=== PATIENT | female | born 1960 | race American Indian/Alaskan Native ===

== ENCOUNTER 2020-11-02 14:44 | Outpatient (CLI) | payer OTHER ==
[2020-11-02 15:16] LABS: Basophils % (Auto) 0.9 % (0.0-1.8); Eosinophils # (Auto) 0.3 K/mm3 (0.0-0.4); Eosinophils % (Auto) 5.9 % (0.0-4.3); Hemoglobin 12.9 gm/dl (10.1-14.3); Lymphocytes # (Auto) 1.6 K/mm3 (1.2-5.4); Lymphocytes % (Auto) 36.6 % (13.4-35.0); Mean Corpuscular HGB Conc 33 % (30-34); Mean Corpuscular Volume 87 fl (79-97); Monocytes # (Auto) 0.3 K/mm3 (0.0-0.8); Monocytes % (Auto) 7.5 % (0.0-7.3); Platelet Count 333 K/mm3 (140-440); Red Blood Count 4.51 M/mm3 (3.65-5.03); Red Cell Distribution Width 14.6 % (13.2-15.2)
[2020-11-02 16:18] LABS: Alanine Aminotransferase 13 units/L (7-56); Albumin 4.3 g/dL (3.9-5); BUN/Creatinine Ratio 14; Blood Urea Nitrogen 15 mg/dL (7-17); Calcium 9.9 mg/dL (8.4-10.2); Chol/HDL Ratio 3.17 %; HDL Cholesterol 58 mg/dL (40-59); Hemolysis Index 4; LDL Cholesterol,Direct 123 mg/dL (50-130)
--- NOTE | 2020-11-02 17:05 | Cat Scan Report ---
CT CHEST WITHOUT CONTRAST INDICATION / CLINICAL INFORMATION: ABNORMAL FINDING OF LUNG. TECHNIQUE: Axial CT images were obtained through the chest without contrast. All CT scans at this location are p erformed using CT dose reduction for ALARA by means of automated exposure control. COMPARISON: None available. FINDINGS: THORACIC AORTA: Mild ectasia of the thoracic aorta without aneurysm. Mild aortic atherosclerotic calc ifications. No acute abnormality. HEART: Mild cardiac enlargement. No pericardial effusion. MEDIASTINUM / MARITZA: No significant thoracic lymphadenopathy. LUNGS/PLEURA: Diffuse multifocal airspace consolidation seen throughout the lungs. No pleural effusio n or pneumothorax. ADDITIONAL CHEST FINDINGS: None. UPPER ABDOMEN: No significant abnormality. SKELETAL SYSTEM: IMPRESSION: Diffuse pulmonary airspace disease, most consistent with multifocal pneumonia. Signer Name: Deyvi Saavedra MD Signed: 11/02/2020 5:01 PM Workstation Name: [id number]
== END 2020-11-02 14:45 | disposition home or self-care (01) ==
LOC: CT 14:44
PROVIDERS: ATTEND Internal Medicine
DX: I77.810 Thoracic aortic ectasia (principal); R91.8 Other nonspecific abnormal finding of lung field; E78.00 Pure hypercholesterolemia, unspecified; I10 Essential (primary) hypertension; I70.0 Atherosclerosis of aorta
CPT/HCPCS: 36415; 71250; 80053; 80061; 82164; 84436; 84443; 85025